=== PATIENT | male | born 1965 | race Caucasian/White ===

== ENCOUNTER 2020-04-25 05:07 | Emergency (ER) | payer OTHER ==
[2020-04-25] MEDS ORDERED: NA CHLORIDE 0.9% 500 ML ONE (05:48)
[2020-04-25] MEDS ORDERED: CEFAZOLIN SODIUM 1 GM/VIAL ONE (05:48)
[2020-04-25] MEDS ORDERED: LIDOCAINE 1% W/EPI 1:100,000 MDV 20 ML VIAL ONE (05:48)
[2020-04-25] MEDS ORDERED: NA CHLORIDE 0.9% 100 ML IV ONE (05:48)
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
[2020-04-25] MEDS ORDERED: BACI/NEOMYCIN/POLY OINT 15GM TOP ONE (07:43)
[2020-04-25] MEDS ORDERED: CEPHALEXIN 250 MG CAP ONE (07:43)
[2020-04-25] MEDS ORDERED: ACETAMINOPHEN 500 MG TAB ONE (07:43)
[2020-04-25 08:04] VITALS: TEMP 98.2
[2020-04-25 08:06] VITALS: BP 162/99; O2SAT 99
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
== END 2020-04-25 07:59 | disposition home or self-care (01) ==
LOC: ER 05:07
PROC: 0JQ10ZZ Repair Face Subcutaneous Tissue and Fascia, Open Approach (ICD-10-PCS; principal; 2020-04-25)
DX: S01.112A Laceration without foreign body of left eyelid and periocular area, initial encounter (principal); S63.512A Sprain of carpal joint of left wrist, initial encounter; V49.40XA Driver injured in collision with unspecified motor vehicles in traffic accident, initial encounter; Z88.0 Allergy status to penicillin
CPT/HCPCS: 70450; 72125; 71045; 72170; 73110; 96374; 99284; 12013; J7040; J0690